=== PATIENT | male | born 1970 | race Caucasian/White ===

== ENCOUNTER 2016-11-08 15:02 | Inpatient (IN) | payer OTHER ==
[~2016-11-08] VITALS: Ht 177.8 cm; Wt 78.9 kg
--- NOTE | 2016-11-08 15:20 | NUR ---
TO LOBBY, NO DISTRESS NOTED
--- NOTE | 2016-11-08 17:48 | NUR ---
DR ARIAS AT BEDSIDE TO EVAL
[2016-11-08 18:09] LABS: BASOPHIL % 0.5 % (0-2); PLATELET COUNT 169 x10^3mcL (130-400)
[2016-11-08 18:12] LABS: RED CELL DISTRIBUTION WIDTH 15.4 % (11.5-14.5)
[2016-11-08 18:18] LABS: CALCIUM 7.9 mg/dL (8.5-10.1); CARBON DIOXIDE 29.7 mmol/L (21-32); CHLORIDE SERUM 109 mmol/L (98-107); GFR1 > 60 mL/min; GLUCOSE SERUM 141 mg/dL (74-106); POTASSIUM SERUM 4.1 mmol/L (3.5-5.1); SODIUM SERUM 148 mmol/L (136-145)
[2016-11-08 18:23] LABS: ALBUMIN 3.4 g/dL (3.4-5.0); ALKALINE PHOSPHATASE 68 U/L (46-116); ALT/SGPT 33 U/L (16-63); AST/SGOT 35 U/L (15-37); TOTAL PROTEIN, SERUM 6.8 g/dL (6.4-8.2)
--- NOTE | 2016-11-08 19:15 | NUR ---
DR ARIAS AT BEDSIDE DISCUSSING POC WITH THE PT.
--- NOTE | 2016-11-08 19:50 | NUR ---
REPORT GIVEN TO LELIA CARDOZA TO ASSUME CARE OF THE PT.
[2016-11-08 20:14] LABS: MAGNESIUM 1.9 mg/dL (1.8-2.4); PHOSPHOROUS 3.7 mg/dL (2.5-4.9); T3 TOTAL 1.01 ng/mL
[2016-11-08 20:20] LABS: CHOLESTEROL/HDL RATIO 2.5
[2016-11-08 20:25] LABS: FREE T4 1.06 ng/dL (0.76-1.46); FREE THYROXINE INDEX 2.5 ug/dL (1.4-4.5); T4(THYROXINE) 7.6 ug/dL (4.7-13.3)
--- NOTE | 2016-11-08 20:29 | NUR ---
PT TAKEN TO CT VIA RELIER.
[2016-11-08 21:06] VITALS: BP 139/83
--- NOTE | 2016-11-08 21:10 | NUR ---
REC'D AAOX4, SPEECH CLEAR. DENIES DIZZINES AND H/A. FAMILY AT THE BEDSIDE. DENIES CHEST PAIN. ON TELE . ON RA, NO SOB NOTED. AMBULATORY WITH STEADY GAIT. DR. MALONEY AND DR. LOZOYA INFORMED OK FOR PT TO DRINK WATER. ORIENTED TO ROOM AND SURROUNDINGS. CALL LIGHT WITHIN REACH, PROVIDED REPORT TO HEMALITA RN FOR CONTINUITY OF CARE.
--- NOTE | 2016-11-08 21:46 | NUR ---
ADMISSION ORDERS CARRIED OUT. STARTED IN NS INFUSING AT 100ML/HR. TELE# 20.NSR WITH ELEVATED T WAVE ON MONIOTR. DENIES CHESTPAIN AT THIS TIME. FAMILY MEMBERS AT BEDSIDE. WILL CONTINUE TO MONITOR. CALL LIGHT WITHIN REACH.
--- NOTE | 2016-11-09 00:34 | NUR ---
PT REFUSED TO HAVE ABG DONE AT THIS TIME, PT WANTS TO SLEEP, RN AND DR. RIVERA WAS NOTIFIED
--- NOTE | 2016-11-09 00:36 | NUR ---
PATIENT REFUSED ABG DR APONTE MADE AWARE.
--- NOTE | 2016-11-09 03:04 | NUR ---
PATIENT REFUSED BLOOD DRAW FOR TROPONIN, DR RIVERA MADE AWARE.
--- NOTE | 2016-11-09 05:06 | NUR ---
CHECKED AT INTERVALS FOR NEEDS AND SAFETY. ALL NEEDS ATTENDED.
[2016-11-09 06:00] VITALS: BP 128/81
[2016-11-09 06:50] LABS: CARBON DIOXIDE 22.1 mmol/L (21-32); CHLORIDE SERUM 107 mmol/L (98-107); CREATININE SERUM 0.9 mg/dL (0.7-1.3); GFR1 > 60 mL/min; GLUCOSE SERUM 118 mg/dL (74-106); MAGNESIUM 1.7 mg/dL (1.8-2.4); PHOSPHOROUS 3.5 mg/dL (2.5-4.9); SODIUM SERUM 143 mmol/L (136-145)
[2016-11-09 06:56] LABS: PLATELET COUNT 141 x10^3mcL (130-400)
[2016-11-09 07:02] LABS: BASOPHIL % 0 % (0-2); RED CELL DISTRIBUTION WIDTH 15.2 % (11.5-14.5)
--- NOTE | 2016-11-09 07:40 | NUR ---
A/O X4. CLEAR SPEECH. FOLLOW COMMANDS. DENIES SOB/CP. ON TEL 20 HR 81. RADIAL AND PEDAL PULSES PALPABLE. NO EDEMA OR SWELLING NOTED. <3 SECS CAP REFILL. ON RA SAT 93%. BREATHING EVEN AND UNLABORED. CLEAR LUNG SOUNDS. NO NVD. VOIDIND ADEQUATELY. AMBULATORY WITH STEADY GAIT. NO SKIN TEAR OR OPEN WOUND. DENIES PAIN. IV CLARICE INTACT ON LAC WITH NS INFUSING WELL AT 100 ML/HR. WILL CONTINUE TO MONITOR. CALL LIGHT WITHIN REACH.
--- NOTE | 2016-11-09 08:17 | NUR ---
YACHT MASTER AT BEDSIDE.
--- NOTE | 2016-11-09 09:10 | NUR ---
MICROBIOLOGY SOIL SCIENTIST CALLED TO NOTIFY Pt HAS NEEDLE PHOBIA. MICROBIOLOGY SOIL SCIENTIST WILL COME AT 10AM TO DRAW BOTH AMMONIA AND TROPONIN.
--- NOTE | 2016-11-09 09:37 | NUR ---
SPOKE TO DR WILLIAM REGARDING Pt REQUESTING NICOTINE PATCH.
--- NOTE | 2016-11-09 10:20 | NUR ---
TOOK MEDS WITHOUT DIFFICULTY.
--- NOTE | 2016-11-09 10:50 | NUR ---
PT. IS REFUSING 0800AM ABG. NO RESP DISTRESS NO SOB NOTED. PT.'S SAT IS 98% ON ROOM AIR. PAGED TO NOTIFY. WILL CONT TO MONITOR.
--- NOTE | 2016-11-09 12:50 | NUR ---
RESTING COMFORTABLY. NO DISTRESS NOTED. WILL CONTINUE TO MONITOR.
--- NOTE | 2016-11-09 14:43 | NUR ---
WATCHING TV. NO DISTRESS NOTED. WILL CONTINUE TO MONITOR.
[2016-11-09 16:36] VITALS: BP 143/87
[2016-11-09 16:49] VITALS: Ht 177.8 cm; Wt 78.9 kg
--- NOTE | 2016-11-09 17:10 | NUR ---
WATCHING TV. NO DISTRESS NOTED. WILL CONTINUE TO MONITOR.
--- NOTE | 2016-11-09 18:45 | NUR ---
SITTING AT THE SIDE OF BED. NO DISTRESS NOTED. WILL CONTINUE TO MONITOR.
--- NOTE | 2016-11-09 19:30 | NUR ---
PER DR GROVE PT OKAY TO HAVE SHOWER.
--- NOTE | 2016-11-09 19:33 | NUR ---
PT SEEN, RESTING IN THE BED, ALERT AND ORIENTED, DENIES HEADACHE OR DIZZINESS, BREATHING EVEN AND UNLABORED, NO SOB, LUNG SOUNDS CLEAR, ON ROOM WITH NO RESP DISTRESS NOTED, ON AND OFF DRY COUGH, ON TELE#20 NSR WITH ELEVATED T-WAVE, DENIES CHEST PAIN, IVF INFUSING WELL, PULSES PALPABLE, NO EDEMA NOTED, AMBULATORY WITH STEADY GAIT, ABD SOFT AND FLAT WITH ACTIVE BS, NO BM AT THIS TIME, DENIES ABD PAIN, NO DISTRESS NOTED, WILL KEEP TO MONITOR.
[2016-11-09 20:01] LABS: microscopic required? NO
[2016-11-09 20:05] LABS: urine erythrocyte NEGATIVE (NEGATIVE)
[2016-11-09 20:15] LABS: AMPHETAMINE QUAL UR NONE DETECTED (NEG <=1000)
--- NOTE | 2016-11-09 21:15 | NUR ---
TELE MONITOR REMOVED FOR PT TO TAKE SHOWER, EDUCATED PT IF DURING SHOWER HE FEELS DIZZINESS OR DISCOMFORT PLEASE INFORM NURSE MARTÍN, PT VERBALIZED UNDERSTANDING.
[2016-11-09 21:50] VITALS: BP 127/71
--- NOTE | 2016-11-10 02:51 | NUR ---
ROUNDS MADE, PT ASLEEP, BREATHING EVEN AND UNLABORED, NO SOB OR RESP DISTRESS NOTED, IVF BAG CHANGED, WILL KEEP TO MONITOR.
--- NOTE | 2016-11-10 05:24 | NUR ---
PT ASLEEP BUT EASILY AROUSABLE, SLEPT MOST OF NIGHT AFTER HAD SHOWER LAST NIGHT, ON TELE#20 NSR, DENIES ANY CHEST PAIN SINCE BEGINNING OF SHIFT, IVF INFUSING WELL, NO DISTRESS NOTED, WILL KEEP TO MONITOR.
[2016-11-10 06:15] LABS: BASOPHIL % 0.1 % (0-2); PLATELET COUNT 147 x10^3mcL (130-400)
[2016-11-10 06:16] LABS: RED CELL DISTRIBUTION WIDTH 14.8 % (11.5-14.5)
[2016-11-10 06:28] VITALS: BP 136/69
[2016-11-10 06:40] LABS: CALCIUM 8.7 mg/dL (8.5-10.1); CARBON DIOXIDE 27.7 mmol/L (21-32); CHLORIDE SERUM 108 mmol/L (98-107); CREATININE SERUM 0.8 mg/dL (0.7-1.3); GFR1 > 60 mL/min; GLUCOSE SERUM 140 mg/dL (74-106); PHOSPHOROUS 2.9 mg/dL (2.5-4.9); POTASSIUM SERUM 4.8 mmol/L (3.5-5.1); SODIUM SERUM 145 mmol/L (136-145)
--- NOTE | 2016-11-10 07:45 | NUR ---
A/O X4. CLEAR SPEECH. FOLLOW COMMANDS. DENIES SOB/CP. ON TEL 20 HR 59. RADIAL AND PEDAL PULSES PALPABLE. NO EDEMA OR SWELLING NOTED. <3 SECS CAP REFILL. ON RA SAT 97%. BREATHING EVEN AND UNLABORED. CLEAR LUNG SOUNDS. NO NVD. VOIDIND ADEQUATELY. AMBULATORY WITH STEADY GAIT. NO SKIN TEAR OR OPEN WOUND. DENIES PAIN. IV CLARICE INTACT ON LAC WITH NS INFUSING WELL AT 100 ML/HR. WILL CONTINUE TO MONITOR. CALL LIGHT WITHIN REACH.
--- NOTE | 2016-11-10 08:14 | NUR ---
WATCHING TV. DENIES SOB OR CP. TOOK MEDS WITHOUT DIFFICULTY. WILL CONTINUE TO MONITOR.
[2016-11-10 09:23] VITALS: BP 146/84
--- NOTE | 2016-11-10 09:39 | NUR ---
RESTING COMFORTABLY. Pt'S QUESTIONS ANSWERED BY MORNING ROUNDS.
[2016-11-10 10:43] VITALS: BP 146/84
[2016-11-10] MEDS ORDERED: MEDDP PO (11:35)
[2016-11-10] MEDS ORDERED: PROAIR HFA8.5 GM IH (11:37)
[2016-11-10] MEDS ORDERED: PULMICORT180 MCG/Ac INH (11:38)
--- NOTE | 2016-11-10 12:58 | NUR ---
DC INSTRUCTIONS AND WORK NOTE GIVEN. VERBALIZE UNDERSTANDING. IV CLARICE INTACT AND DC'D. TELEBOX CLEANED AND RETURNED. WILL ESCORT Pt DOWN THE LOBBY.
== END 2016-11-10 13:00 | disposition home or self-care (01) | DRG 140 ==
LOC: ED 15:02 → DU 19:16
PROVIDERS: Emergency Medicine; ADMIT Family Medicine
DX: J44.1 Chronic obstructive pulmonary disease with (acute) exacerbation (principal); J96.00 Acute respiratory failure, unspecified whether with hypoxia or hypercapnia; M94.0 Chondrocostal junction syndrome [Tietze]; E87.0 Hyperosmolality and hypernatremia; E04.1 Nontoxic single thyroid nodule; E78.1 Pure hyperglyceridemia; Z68.25 Body mass index [BMI] 25.0-25.9, adult; R00.0 Tachycardia, unspecified; Z82.49 Family history of ischemic heart disease and other diseases of the circulatory system; G90.9 Disorder of the autonomic nervous system, unspecified
CPT/HCPCS: 83880; 84439; 94150; C9113; J1885; J2920; J2930; J7030; J7620; Q0092; Q9967